=== PATIENT | female | born 1950 | race Caucasian/White ===

== ENCOUNTER 2017-02-07 10:02 | Day surgery (SDC) | payer MEDICARE, OTHER ==
[2017-02-07] MEDS ORDERED: ceFAZolin 1 GM in NORMAL SALINE MINI-BAG+ 100 ML IV ONE ×2 (10:24→10:37)
[2017-02-07] MEDS ORDERED: MIDAZOLAM HCL 2 MG/2 ML SYR IV ONE ×2 (10:36→10:37)
[2017-02-07] MEDS ORDERED: LIDOCAINE HCL 1% 20 ML VIAL SUBCUT ONE ×3 (10:36→13:20)
[2017-02-07] MEDS ORDERED: FAMOTIDINE IN SALINE, ISO-OSM 20 MG/50 ML PIGGYBACK IV SCH ×2 (10:45→13:20)
[2017-02-07] MEDS ORDERED: FAMOTIDINE IN SALINE, ISO-OSM 20 MG/50 ML PIGGYBACK IV ONE (10:55)
[2017-02-07] MEDS ORDERED: LIDOCAINE HCL 2% 20 ML VIAL ONE (10:55)
[2017-02-07] MEDS ORDERED: MIDAZOLAM HCL 2 MG/2 ML VIAL ONE (10:55)
[2017-02-07] MEDS ORDERED: ROPIVACAINE HCL 0.5% 30 ML ONE (10:55)
[2017-02-07] MEDS ORDERED: LACTATED RINGERS 1,000 ML IV SCH ×4 (11:00→13:20)
[2017-02-07] MEDS ORDERED: BUPIVACAINE/EPI 0.25% 1 VIAL VIAL ONE (11:12)
[2017-02-07] MEDS ORDERED: BACITRACIN 50,000 UNITS VIAL IM ONE (11:14)
[2017-02-07] MEDS ORDERED: BACITRACIN 14 APP/14 GM TUBE TOPICAL ONE (11:14)
[2017-02-07] MEDS ORDERED: FENTANYL 250 MCG/5 ML VIAL ONE (11:16)
[2017-02-07] MEDS ORDERED: SUCCINYLCHOLINE CHLORIDE 200 MG/10 ML VIAL ONE (11:16)
[2017-02-07] MEDS ORDERED: DEXAMETHASONE 4 MG/ML VIAL ONE (11:17)
[2017-02-07] MEDS ORDERED: ROCURONIUM BROMIDE 50 MG/5 ML VIAL IV ONE (11:17)
[2017-02-07] MEDS ORDERED: ONDANSETRON HCL 4 MG/2 ML VIAL ONE (11:17)
[2017-02-07] MEDS ORDERED: LIDOCAINE HCL 2% JELLY 1 APP/5 ML TUBE ONE (11:42)
[2017-02-07] MEDS ORDERED: EPHEDrine SULFATE 50 MG/ML VIAL ONE (12:31)
[2017-02-07] MEDS ORDERED: MORPHINE SULFATE 10 MG/ML SYR IV PRN (13:20)
[2017-02-07] MEDS ORDERED: ONDANSETRON HCL 4 MG/2 ML VIAL IV PRN (13:20)
[2017-02-07] MEDS ORDERED: FENTANYL 100 MCG/2 ML VIAL IV PRN (13:20)
[2017-02-07 14:37] VITALS: TEMP 97
[2017-02-07 15:11] VITALS: RESP 16
[2017-02-07 15:39] VITALS: BP 144/91; PULSE 90; O2SAT 92
--- NOTE | 2017-02-07 19:43 | OPERATIVE REPORT ---
DATE OF SURGERY: 02/07/17 SURGEON: Jorge Luis Hamilton DO ANESTHESIA: General. PREOPERATIVE DIAGNOSIS: Left shoulder rotator cuff tear, acromial impingement distal clavicle osteoarthritis and biceps tendonitis. POSTOPERATIVE DIAGNOSIS: Left shoulder rotator cuff tear, acromial impingement distal clavicle osteoarthritis and biceps tendonitis. OPERATION PERFORMED: Left shoulder arthroscopic rotator cuff repair with distal clavicle excision and subacromial decompression. ESTIMATED BLOOD LOSS: Minimal. COMPLICATIONS: None. ORTHOPEDIC IMPLANTS 1. Arthrex speed bridge swivel block 4.7 x 19.1 mm, 5 anchors. PROCEDURE NOTE: The patient was brought to the operating room suite and after administration of general anesthesia the left upper extremity was prepped and draped in a sterile fashion. The patient was positioned in a lateral decubitus position with all bony prominences well padded on a well-padded epstein bag and 4 pillows around her legs. The arthroscopic portal sites were injected with 0.25% bupivacaine with epinephrine prior to incision. Posterior portal was created first. Anterior portals were created under direct visualization after first inserting a spinal needle. Accessory portals were also created anteriorly, laterally and superiorly for anchor placement. 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 The labrum was frayed and it was subsequently debrided with an arthroscopic shaver. The undersurface of the cuff tear was noted which was quite extensive. Attention was then drawn towards the subacromial space. The patient had a significant amount of subacromial soft tissue and bursa material, which was removed before any adequate visualization could be obtained. Patient had a massive rotator cuff tear with laminated component. The foot print for the repair was debrided with arthroscopic radiofrequency device. The subacromial decompression of the bone was then performed. The rotator cuff tear was repaired with a series of 5 anchors in double row configuration with crisscrossing fiber tape sutures with a marginal convergence component performed. Cuff tear was quite extensive and involved all of the supraspinatus and much of the superior aspect of the infraspinatus. The patient tolerated the procedure well and her blood pressure remained quite level throughout the case. The patient had very little biceps tendonitis with just some erythema on the biceps tendon, but the actual biceps tendon was quite intact and looked well. The acromioclavicular joint however had significant arthroses and a distal clavicle excision or Yaima procedure was done. The arthroscopic portal sites were closed with 3-0 nylon in simple interrupted sutures and dressed with bacitracin ointment, Xeroform, 4x4s, ABDs, and Medipore tape. A Cryo-Cuff was fitted as well as a shoulder immobilizer with abduction pillow placed. The patient was transferred from the operating room suite to the recovery room in stable condition. RANDY
--- NOTE | 2017-02-11 14:23 | PREOPERATIVE H&P ---
History of Present Illness (Jorge Luis Hamilton DO; 02/02/2017 10:14 AM) The patient is a 66 year old female. Patient presents for her preoperative visit prior to her left shoulder arthroscopy. Patient has been having persistent symptoms in her shoulder without any improvements from activity modifications. She is also status post left knee arthroscopy. She does not have any more meniscal symptoms but does have frequent swelling behind her knee and achiness so much so that she has not been hiking routinely. 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 Colpo shows cervical biopsy ARLIN 1 and ECC ARLIN 1. s/p LEEP shows ARLIN 1 with negative margins. Knee clicking (R29.898) Actinic keratosis (702.0) (L57.0) Tinnitus, unspecified laterality (H93.19) Posterior left knee pain (M25.562) negative DVT; there is a 7cm X 2cm Herrera's cyst US LLE Essential hypertension with goal blood pressure less than 130/80 (I10) Allergic rhinitis (477.9) (J30.9) Foot pain, bilateral (M79.671, M79.672) Benign positional vertigo, bilateral (H81.13) Hyperlipidemia, acquired (E78.5) She declines statin medications. Rotator cuff injury, left, initial encounter (S46.002A) Cyst, Herrera's knee, left (M71.22) MILD DYSPLASIA OF CERVIX-ARLIN I (622.11) Hallux valgus, acquired, bilateral (M20.11, M20.12) X-rays reveal bilateral hallux valgus deformities, R>L. Insomnia (780.52) (G47.00) Screening for depression (Z13.89) Complete tear of left rotator cuff (M75.122) Allergies (Rhianna Alexandre RN; 02/02/2017 9:38 AM) Clindamycin HCl *ANTI-INFECTIVE AGENTS - MISC.*12/07/2016 10:56 AM Hives. ASIA Inhibitors (Lisinopril, Enalopril, Benazipril...)12/07/2016 Cough Family History (Rhianna Alexandre RN; 02/02/2017 9:38 AM) Sister 1 Taylor: Sleep apnea, thyroid issues Mother at 79, CVA's Sister 3 Jennifer: Healthy; hypothyroidism 2' surgical. Sister 2 Briana: Back troubles; arrythmias; thyroid issues Father at 79 [place]; CAD with 1st [place] in late 40s. Brother HTN Thyroid Disease Brother and each of 3 sisters have all had total or subtotal thyroidectomies for unclear reasons. Social History (Rhianna Alexandre RN; 02/02/2017 9:38 AM) Alcohol Use Moderate alcohol use. 3 glasses of wine at night. Tobacco Use Former smoker. Quit age 42. 30 pack-year history. 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 She was recently laid off from her job. Marital status to Bill 1975, He was Dx with Mult Myeloma 08/2007. 12/15/07. Living with [facility] since 2012. Medication History (Rhianna Alexandre RN; 02/02/2017 9:38 AM) Triamcinolone Acetonide (0.025% Ointment, 1 (one) application External twice daily as needed for dry skin patches, Taken starting 10/07/2015) Active. (Use sparingly twice daily for nomore than 3-5 days.) AmLODIPine Besylate (5MG Tablet, 1 (one) Tablet Oral daily, Taken starting ) Active. Fluticasone Propionate (50MCG/ACT Suspension, 2 (two) Suspension Nasal each nostril once daily, Taken starting 12/07/2016) Active. (Use after nasal saline.) Losartan Potassium-HCTZ (100-12.5MG Tablet, 1 (one) Tablet Oral daily, Taken starting 01/09/2017) Active. Resveratrol Ultra (Oral daily) Active. (. Anti-oxidants.) Vitamin D-3 (1 Oral daily) Specific dose unknown - Active. Vitamin B-12 ER (2 tabs Oral daily) Specific dose unknown - Active. Vitamin C (1000MG Tablet, 2 Oral daily) Active. Fish Oil Maximum Strength (1 Oral daily) Specific dose unknown - Active. CoQ10 (10MG Capsule, 1 (one) Oral daily) Active. Tylenol Extra Strength (500MG Tablet, 1-2 Oral as needed) Active. Benadryl (25MG Tablet, 2 Oral at bedtime as needed) Active. (For sleep) Magnesium Citrate (100MG Tablet, 1 Oral daily) Active. Sudafed (30MG Tablet, 1 Oral at bedtime as needed.) Active. Alpha Lipoic Acid (1 tab Oral daily) Specific dose unknown - Active. Medications Reconciled Past Surgical History (Jorge Luis Hamilton DO; 02/02/2017 10:15 AM) s/p BTL Breast Mass; Local Excision Right. benign Arthroscopy of Knee Left- 09/06/2016 s/p B Lasik Appendectomy Incidental with Section Delivery Section x 2 Diagnostic Studies History (Jorge Luis Hamilton DO; 02/02/2017 10:15 AM) Mammography, Vxmhjsgnks10/17/2014 Tqyeikdxoh79/09/2014 Health Maintenance History (Jorge Luis Hamilton DO; 02/02/2017 10:15 AM) Pap Smear09/30/2014 Normal. Cyknbxdza84/25/2015 Normal. Other Problems (Jorge Luis Hamilton DO; 02/02/2017 10:15 AM) Health education/counseling (Z71.89) Acute non-recurrent maxillary sinusitis (J01.00) Encounter for routine adult health examination with abnormal findings (Z00.01) Special screening for malignant neoplasms, colon (V76.51) (Z12.11) Encounter for immunization (Z23) Review of Systems (Jorge Luis Hamilton DO; 02/02/2017 10:14 AM) General Not Present- Chills and Fever. Skin Not Present- Erythema, Skin Color Changes and Skin Problems. HEENT Not Present- Sleep Apnea. Neck Not Present- Neck Pain. Respiratory Not Present- Cough and Shortness of Breath. Cardiovascular Not Present- Chest Pain, Difficulty Breathing On Exertion, Fainting and Leg Pain and/or Swelling. Gastrointestinal Not Present- Abdominal Pain, Nausea and Vomiting. Female Genitourinary Not Present- Painful Urination. Musculoskeletal Not Present- Decreased Range of Motion, Joint Pain, Joint Stiffness, Joint Swelling, Muscle Pain and Muscle Weakness. Neurological Not Present- Dizziness, Focal Neurological Symptoms, Numbness in extremities, Trouble walking and Weakness. Psychiatric Not Present- Anorexia, Anxiety and Depression. Endocrine Not Present- Weight Loss. Hematology Not Present- Bleeding Problems, DVT and Easy Bruising. Vitals (Rhianna Alexandre RN; 02/02/2017 9:36 AM) 02/02/2017 9:35 AM Weight: 151 lb Height: 68.25in Body Surface Area: 1.82 m Body Mass Index: 22.79 kg/m Temp.: 98.2F Pulse: 72 (Regular) Resp.: 16 (Unlabored) BP: 130/74 (Sitting, Left Arm, Standard) Assessment & Plan (Jorge Luis Hamilton DO; 02/02/2017 10:29 AM) Complete tear of left rotator cuff (M75.122) Impression: We will proceed with left shoulder arthroscopy as consented. Subacromial impingement, left (M75.42) Osteoarthritis of acromioclavicular joint (M19.019) Primary osteoarthritis of left knee (M17.12) Impression: The patient agreed to and signed consent for an injection of the knee with a local analgesic (2ml of 1% Lidocaine) followed by intra-articular injection with Orthovisc. The risks and benefits of the injection were discussed. The area was cleaned and prepped in a sterile fashion prior to injection with a triple prep (alcohol, Betadine and chlorhexidine). The patient tolerated the procedure well. A bandage was applied. The patient will follow up in a week for the second injection. Current Plans Inject/Aspirate Large Joint (shoulder, hip, knee) (76680) Lidocaine 1% (J3490) Signed by Jorge Luis Hamilton DO (02/02/2017 10:30 AM) Pt. examined at bedside and no changes were noted. Signed Jorge Luis Hamilton DO . RANDY
== END 2017-02-07 15:45 | disposition home or self-care (01) ==
LOC: SDS 10:02
PROVIDERS: ATTEND Orthopaedic Surgery
DX: M75.42 Impingement syndrome of left shoulder (principal); M75.122 Complete rotator cuff tear or rupture of left shoulder, not specified as traumatic; M19.012 Primary osteoarthritis, left shoulder; G47.00 Insomnia, unspecified; I10 Essential (primary) hypertension; M15.9 Polyosteoarthritis, unspecified; E87.1 Hypo-osmolality and hyponatremia
CPT/HCPCS: 29824; 29826; 29827; 85610; C1713; J0690; J2250; J2405; J2795; J3010